=== PATIENT | female | born 1955 | race Asian ===

== ENCOUNTER 2022-04-06 07:16 | Day surgery (SDC) | payer OTHER ==
[~2022-04-06] VITALS: Ht 160 cm; Wt 61.7 kg
[2022-04-06] MEDS ORDERED: fentaNYL citrate 0.05 MG/ML VIAL ONE (09:01)
[2022-04-06] MEDS ORDERED: MIDAZOLAM 2 MG/2 ML VIAL ONE (09:01)
[2022-04-06] MEDS ORDERED: LIDOCAINE 2% 100 MG/5 ML UJET TP ONE (09:01)
[2022-04-06] MEDS ORDERED: fentaNYL citrate 0.05 MG/ML VIAL IVP ONE (11:45)
[2022-04-06] MEDS ORDERED: MIDAZOLAM 2 MG/2 ML VIAL IVP ONE (11:45)
== END 2022-04-06 11:05 | disposition home or self-care (01) ==
LOC: MDS 07:16 → MMU 07:23 → MDS 11:05
PROVIDERS: ATTEND Internal Medicine Gastroenterology
DX: Z12.11 Encounter for screening for malignant neoplasm of colon (principal); K29.50 Unspecified chronic gastritis without bleeding; B96.81 Helicobacter pylori [H. pylori] as the cause of diseases classified elsewhere; R14.0 Abdominal distension (gaseous); Z20.822 Contact with and (suspected) exposure to COVID-19; K22.70 Barrett's esophagus without dysplasia; Z79.899 Other long term (current) drug therapy
CPT/HCPCS: 43239; 45378; 87426; J2250; J3010